=== PATIENT | male | born 1965 | race Caucasian/White ===

== ENCOUNTER → 2021-12-10 | Outpatient (CLI) | payer OTHER ==
[~2021-12-10] MED LIST: ARIMIDEX 1 MG TA1 MG PO; ASPIRIN EC81 MG PO; CIALIS5 MG PO; INDOCIN CAP 2525 MG PO; METOPROLOL SUCC50 MG PO; OMEPRAZOLE20 MG PO; TESTOSTERO200 MG/1 M IM; ZOLOFT100 MG PO
[2021-12-10 10:28] LABS: HEMOGLOBIN 17.1 gm/dl (14.0-17.5); WHITE BLOOD COUNT 5.7 K/UL (4.5-11.0)
[2021-12-10 10:32] LABS: RED BLOOD COUNT 7.23 M/UL (4.20-5.50)
== END ==
LOC: OPSV2 09:38 → EDSTATUS 10:00
PROVIDERS: Orthopaedic Surgery
DX: Z01.818 Encounter for other preprocedural examination (principal); M17.12 Unilateral primary osteoarthritis, left knee; I10 Essential (primary) hypertension
CPT/HCPCS: 36415; 71046; 80048; 85025; 93005

== ENCOUNTER → 2021-12-30 | Outpatient (CLI) | payer OTHER ==
[~2021-12-30] MED LIST changes: +ASPIRIN 325MG325 MG PO; +INDOMETHACIN25 MG PO; +PERCOCET 7.5-31 EACH PO
== END ==
LOC: LAB 13:08
PROVIDERS: Orthopaedic Surgery
DX: Z01.812 Encounter for preprocedural laboratory examination (principal); I10 Essential (primary) hypertension; M19.90 Unspecified osteoarthritis, unspecified site
CPT/HCPCS: 36415; 80048; 86850; 86900; 86901

== ENCOUNTER 2021-12-31 06:04 | Day surgery (SDC) | payer OTHER ==
[~2021-12-31] VITALS: Ht 182.9 cm; Wt 142.9 kg
[~2021-12-31 06:04] MED LIST changes: -ASPIRIN 325MG325 MG PO; -INDOMETHACIN25 MG PO; -PERCOCET 7.5-31 EACH PO
[2021-12-31] MEDS ORDERED: PERCOCET 7.5-31 EACH PO (14:24)
[2021-12-31] MEDS ORDERED: INDOMETHACIN25 MG PO (17:36)
[2022-01-01] MEDS ORDERED: ASPIRIN 325MG325 MG PO (08:23)
--- NOTE | 2022-01-01 11:12 | NUR ---
APPROACHED IN HALLWAY BY PSYCHIATRIC NURSE PRACTITIONER. SHE STATES PATIENT IS CONFUSED AND SEEMS TO HAVE A SCATTERED THOUGHT PROCESS. STATES THAT HE IS DIAPHORETIC AND THE TOLD HER THAT HE HAD THE BED LINENS CHANGED SEVERAL TIMES DURING THE PREVIOUS SHIFT. PT WAS ALERT AND ORIENTED TO PLACE, TIME AND PERSON DURING EARLIER ASSESSMENT. HAD NOT VOICED ANY CONCERNS TO NURSING STAFF. NOTE ENTERED PREVIOUSLY BY ANESTHESIA THAT DR RICHEY HAD BEEN NOTIFIED OF CONSULT. DR RICHEY NOTIFIED TO SEE PT. HE WAS NEVER NOTIFIED OF CONSULT YESTERDAY AND REQUEST THAT DR CARSON BE NOTIFIED SO THAT HE CAN ASSIGN PT. DR CARSON NOTIFIED AND PT ASSIGNED TO DR BOSS.
== END 2022-01-01 14:52 | disposition home or self-care (01) ==
LOC: OR 06:04 → M/S 17:54 → OR 01-01 14:52
DX: M17.0 Bilateral primary osteoarthritis of knee (principal); G93.40 Encephalopathy, unspecified; I10 Essential (primary) hypertension; K21.9 Gastro-esophageal reflux disease without esophagitis; E78.5 Hyperlipidemia, unspecified; G47.30 Sleep apnea, unspecified; E66.9 Obesity, unspecified; F41.9 Anxiety disorder, unspecified; Z86.16 Personal history of COVID-19; Z99.89 Dependence on other enabling machines and devices; Z79.2 Long term (current) use of antibiotics; Z79.82 Long term (current) use of aspirin; Z79.899 Other long term (current) drug therapy; Z68.41 Body mass index [BMI] 40.0-44.9, adult
CPT/HCPCS: 36600; 73560; 82803; 82962; 94660; 97110-GP-CQ; 97116-GP-CQ; 97162; 97166; 97535; C1713; C1776; J0592; J0690; J1100; J1170; J1200; J1885; J2250; J2310; J2370; J2400; J2405; J2704; J2710; J2795; J3010; J3370; J3475; J7120